=== PATIENT | female | born 1990 ===

== ENCOUNTER → 2022-11-11 | Outpatient (CLI) | payer OTHER ==
[~2022-11-11] MED LIST: CYCLOBENZAPRINE10 MG PO
== END | disposition home or self-care (01) ==
LOC: RAD 12:16
PROVIDERS: ATTEND Surgery
DX: K59.09 Other constipation (principal); K62.89 Other specified diseases of anus and rectum; K64.1 Second degree hemorrhoids

== ENCOUNTER 2023-05-08 05:55 | Day surgery (SDC) | payer OTHER | END 2023-05-08 10:10 | disposition home or self-care (01) | LOC: AMB-ENDOS 05:55 | PROVIDERS: ATTEND Surgery | DX: K59.01 Slow transit constipation (principal); K62.89 Other specified diseases of anus and rectum; K64.1 Second degree hemorrhoids; Z20.822 Contact with and (suspected) exposure to COVID-19 ==